=== PATIENT | female | born 1990 | race American Indian/Alaskan Native ===

== ENCOUNTER 2019-07-02 22:46 | Emergency (ER) | payer SELFPAY ==
[2019-07-02] MEDS ORDERED: BUPIVACAINE/PF (0.5%) 5 MG/1 ML 10 ML VIAL INFILTRATI ONE (23:54)
[2019-07-02] MEDS ORDERED: LIDOCAINE-MPF (1%) 10 MG/1 ML VIAL 5 ML INFILTRATI ONE (23:54)
[2019-07-03] MEDS ORDERED: TETANUS,DIPH,PERTUSS(ACELL) VACCINE 0.5 ML SYRINGE IM ONE
--- NOTE | 2019-07-03 01:52 | Emergency Department Report ---
- General Chief Complaint: Laceration/Recheck/Suture Stated Complaint: CUT ON FINGER Time Seen by Provider: 07/02/19 23:54 Source: patient Mode of arrival: Ambulatory Limitations: No Limitations - History of Present Illness Initial Comments: Patient is a 28-year-old female presents to the emergency room complaints of a laceration to the left pinky that occurred around 7 PM last night. She states that she was cut by the metal part of a broom stick. She is able to move the finger. She denies anything getting into the finger. She is unsure of her last tetanus immunization. She denies any numbness or weakness. She denies any past medical history or allergies to medications. - Related Data Allergies Allergy/AdvReac Type Severity Reaction Status Date / Time No Known Allergies Allergy Unverified 07/02/19 22:54 ED Review of Systems ROS: Stated complaint: CUT ON FINGER Other details as noted in HPI Comment: All other systems reviewed and negative ED Past Medical Hx - Past Medical History Previous Medical History?: No - Surgical History Past Surgical History?: No - Social History Smoking Status: Never Smoker ED Physical Exam - General Limitations: No Limitations General appearance: alert, in no apparent distress - Head Head exam: Present: atraumatic, normocephalic - Eye Eye exam: Present: normal appearance - ENT ENT exam: Present: mucous membranes moist - Extremities Exam Extremities exam: Present: other (2.5 cm C-shaped flap laceration to the palmar surface of the distal left pinky, small amount of bleeding, no muscle/tendon involvement, no obvious foreign body, FROM of the left digits, hand, and wrist, no deformity, neurovascularly intact) - Neurological Exam Neurological exam: Present: alert, oriented X3 - Psychiatric Psychiatric exam: Present: normal affect, normal mood - Skin Skin exam: Present: warm, dry ED Course Vital Signs 07/02/19 07/03/19 22:50 01:55 Temperature 98.7 F 98.2 F Pulse Rate 96 H 72 Respiratory 18 19 Rate Blood Pressure 149/90 Blood Pressure 122/72 [Left] O2 Sat by Pulse 100 98 Oximetry - Laceration /Wound Repair Left Distal Palm Finger Wound Location: upper extremity (palmar surface of the distal left pinky) Wound Length (cm): 3 (2.5 cm) Wound's Depth, Shape: irregular, flap Wound Explored: clean Irrigated w/ Saline (ccs): 500 Betadine Prep?: Yes Anesthesia: 1% Lidocaine, 0.5% Sensorcaine Volume Anesthetic (ccs): 8 (4 cc of 1% lidocaine, 4 cc of 0.5% Bupivacaine) Wound Debrided: extensive Wound Repaired With: sutures Suture Size/Type: 4:0 Number of Sutures: 8 Layer Closure?: No Sterile Dressing Applied?: Yes Progress: Wound irrigated with saline and thoroughly scrubbed with Betadine, no foreign bodies identified, no muscle or tendon involvement, digital block performed using 8 cc of anesthetic which was a mix of 1% lidocaine without epinephrine and 0.5% bupivacaine, Betadine prep again, sterile gloves worn, sterile drapes applied, 4-0 Prolene used for skin closure, 8 sutures placed, patient tolerated well, bleeding controlled, no complications, sterile dressing applied ED Medical Decision Making - Medical Decision Making Patient is a 28-year-old female presents to the emergency room complaints of a laceration to the left pinky that occurred around 7 PM last night. She states that she was cut by the metal part of a broom stick. She is able to move the finger. She denies anything getting into the finger. She is unsure of her last tetanus immunization. She denies any numbness or weakness. She denies any past medical history or allergies to medications. Vitals are stable. On exam: 2.5 cm C-shaped flap laceration to the palmar surface of the distal left pinky, small amount of bleeding, no muscle/tendon involvement, no obvious foreign body, FROM of the left digits, hand, and wrist, no deformity, neurovascularly intact. Wound irrigated with saline and thoroughly scrubbed with Betadine and repaired per procedure note. advised pt Sutures need to be removed in 7 to 10 days. Please keep area clean, dry, covered. May wash with soap and water and immediately dry. No hot tub, no pool, no soaking in water. Follow-up with a primary care doctor. Return to emergency room for any new or worsening symptoms or any signs of infection. Critical care attestation.: If time is entered above; I have spent that time in minutes in the direct care of this critically ill patient, excluding procedure time. ED Disposition Clinical Impression: Laceration of left little finger Qualifiers: Encounter type: initial encounter Damage to nail status: without damage Foreign body presence: without foreign body Qualified Code(s): S61.217A - Laceration without foreign body of left little finger without damage to nail, initial encounter Disposition: - TO HOME OR SELFCARE Is pt being admited?: No Does the pt Need Aspirin: No Condition: Stable Instructions: Suture Care (ED), Laceration (ED) Additional Instructions: Sutures need to be removed in 7 to 10 days. Please keep area clean, dry, covered. May wash with soap and water and immediately dry. No hot tub, no pool, no soaking in water. Follow-up with a primary care doctor. Return to emergency room for any new or worsening symptoms or any signs of infection. Referrals: WESTON ENCINAS MD [Staff Physician] - 3-5 Days [facility] [Provider Group] - 3-5 Days Time of Disposition: 01:52 Print Language: [place] CITIZ[place]
[2019-07-03 01:56] VITALS: BP 122/72
== END 2019-07-03 01:59 | disposition home or self-care (01) ==
LOC: ED 22:46
DX: S61.217A Laceration without foreign body of left little finger without damage to nail, initial encounter (principal); W26.8XXA Contact with other sharp object(s), not elsewhere classified, initial encounter; Y93.89 Activity, other specified; Y92.89 Other specified places as the place of occurrence of the external cause; Y99.8 Other external cause status
CPT/HCPCS: 90471